=== PATIENT | female | born 2000 | race Caucasian/White ===

== ENCOUNTER 2022-06-10 00:14 | Inpatient (IN) ==
[2022-06-10] MEDS ORDERED: PENICILLIN G POTASSIUM 6 MU in DEXTROSE 5% 250 ML IV STA (02:41)
[2022-06-10] MEDS ORDERED: LIDOCAINE 1% LOCAL 20 ML VIAL INFIL PRN (02:41)
[2022-06-10] MEDS ORDERED: OXYTOCIN 30 UNITS/500 ML BAG IV PRN ×3 (02:41→16:13)
[2022-06-10] MEDS: LACTATED RINGER'S 1,000 ML IV PRN ×2 (03:02→11:08)
[2022-06-10] MEDS ORDERED: ePHEDrine sulfate 50 MG/ML AMP ONE (03:02)
[2022-06-10] MEDS ORDERED: BUPIVACAINE 0.25% PF 30 ML VIAL ONE (03:03)
[2022-06-10] MEDS ORDERED: SODIUM CHLORIDE 0.9% PF INJ 10 ML VIAL ONE (03:03)
[2022-06-10] MEDS ORDERED: fentaNYL citrate PF 100 MCG/2 ML VIAL ONE ×2 (03:03→11:09)
[2022-06-10] MEDS ORDERED: LIDOCAINE 2%/EPINEPHRINE 1:200,000 20 ML PF ONE (03:03)
[2022-06-10] MEDS ORDERED: fentaNYL 2MCG/ML ROPIVACAINE 1.25MG/ML 100 ML BAG EPI ONE (03:04)
[2022-06-10 03:13] LABS: Hematocrit (blood only) 30.8 % (37.0-47.0); Mean Corpuscular Hemoglobin 25.8 pg (25.0-34.0); Mean Corpuscular Hgb Conc 32.5 g/dL (32.0-36.0); Mean Corpuscular Volume 79.4 fL (80.0-100.0); Mean Platelet Volume 9.8 fL (9.4-12.4); Platelet Count 287 K/uL (130-400); RDW Coefficient of Variation 14.6 % (11.5-14.5); RDW Standard Deviation 41.9 fL (36.4-46.3); Red Blood Count 3.88 M/uL (4.20-5.40); White Blood Count 7.74 K/ul (4.8-10.8)
[2022-06-10] MEDS ORDERED: ONDANSETRON INJ 2 MG/ML 2 ML VIAL IV PRN (03:22)
[2022-06-10] MEDS ORDERED: NALOXONE HCL 1 MG in SODIUM CHLORIDE 0.9% 1000ML 1,000 ML IV PRN (03:22)
[2022-06-10] MEDS ORDERED: NALOXONE HCL 0.4 MG/1 ML VIAL/CARP IV PRN (03:22)
[2022-06-10] MEDS ORDERED: ePHEDrine sulfate 50 MG/ML AMP IV PRN (03:22)
[2022-06-10] MEDS ORDERED: diphenhydrAMINE 50 MG/ML VIAL IV PRN (03:22)
[2022-06-10] MEDS ORDERED: NALBUPHINE HCL INJ 10 MG/ML AMP IV PRN (03:22)
--- NOTE | 2022-06-10 03:24 | Anesthesiology Consultation ---
Date of Service June 10, 2022 Assessment & Plan (1) Encounter for pre-operative examination: Chart Review Chart Review: Patient NOT seen in Pre Admission Testing and Acceptable Risk for Labor Epidural Consults Requested none History Height/Weight Height: 4 ft 11.84 in Weight: 73.936 kg Allergies Allergy/AdvReac Type Severity Reaction Status Date / Time No Known Drug Allergies Allergy Verified 06/05/22 14:43 Medications Home Medications Medication Instructions Recorded Confirmed Last Taken prenat.vits,urbano,hjn-zlzo-vhfnq 1 tab PO DAILY 12/12/21 06/10/22 06/08/22 08:00 Active Medications Generic Name Dose Route Start Last Admin Trade Name Freq PRN Reason Stop Dose Admin Lactated Ringer's 1,000 mls @ 125 mls/hr 06/10/22 02:41 06/10/22 03:02 Lr IV 06/12/22 02:40 999 mls/hr .Q8H PRN Administration L&D Protocol Protocol Past Medical History Medical History Hyperemesis gravidarum Exercise / Class Metabolic Activity II 4-5 Yardwork/Stairs/Walk up hill Past Family History Family History Denies family history of Ovarian cancer Breast cancer Colorectal cancer Past Surgical History Surgical History No pertinent past surgical history Social History Smoking Status: Never smoker Hx Alcohol Use: No Hx Substance Use: No Physical Exam Vital Signs Last Vital Signs Temp 36.8 C 06/10/22 00:34 Pulse 81 06/10/22 03:44 Resp 18 06/10/22 00:34 BP 113/56 L 06/10/22 03:44 Pulse Ox 100 06/10/22 03:43 Testing Laboratory Results 06/10/22 02:56
--- NOTE | 2022-06-10 03:37 | History & Physical Report ---
Date of Service June 10, 2022 Assessment & Plan (1) 39 weeks gestation of : (2) Active labor at term: (3) Carrier of group B Streptococcus: Plan admit, iv, labs. pcn for gbs. fhts categ 1. pt desires and receiving epidural. aware via nurse that may require pit augmentation and accepts. History of Present Illness Chief Complaint: contractions. Primary Care Provider: [facility] 22yo at 39wks mirian presents to L&D with painful contractions. She did not call, she just arrived with these complaints. No rom, no vb. +FM. Her cervix was examined by nursing and she was 3cm and on re-exam was 3.5cm with closer painful contractions. There is a language barrier and cripple worker used for communication. PNC c/b 1. GBS pos PNL rh pos, ri, gbs neg. OBH: g1 GYNH: no stds Allergies Allergy/AdvReac Type Severity Reaction Status Date / Time No Known Drug Allergies Allergy Verified 06/05/22 14:43 Home Medications Medication Instructions Recorded Confirmed Type prenat.vits,urbano,oki-[id number]-[id number] 1 tab PO DAILY 12/12/21 06/10/22 History Patient History Medical History Hyperemesis gravidarum Surgical History No pertinent past surgical history Family History Denies family history of Ovarian cancer Breast cancer Colorectal cancer Social History Smoking Status: Never smoker Second Hand Exposure: No; Hx Alcohol Use: No Hx Substance Use: No Preferred Language: Slovak Communication Ability: Effective Communication Tools: IPad Recycle Coordinator Required: Yes Beliefs That Will Affect Care: None marital status: Single marital status details: viky Gage (23) Current Living Situation: Significant Other Current Living Situation Comment: lives with fob, no pets current occupational status: employed current occupation: [employer] Other Information That Helps Us Care for You: No Feels Safe at Home: Yes Review of Systems as per Subjective / HPI Physical Exam Constitutional: WD/WN, vitals as above Genitourinary: Manual OB Exam: + cervical dilation (3-4cm), + cervical effacement (75%) and + station (Per nurse) -2 OB Exam Monitor Tracing: + external FHT monitor used, + external uterine monitor used (q2-3min), + category I and + normal FHT variability Pt receiving epidural and so unable to complete general exam. Results & Data Vital Signs (Past 12 Hours) Vital Signs Temp Pulse Resp BP Pulse Ox 06/10/22 03:28 68 99 06/10/22 03:23 80 100 06/10/22 03:18 83 99 06/10/22 00:41 76 103/58 L 06/10/22 00:34 98.2 F 18 Coding Level of Care Code None Diagnoses 39 weeks gestation of Z3A.39 Active labor at term Carrier of group B Streptococcus Z22.330
[2022-06-10] MEDS: fentaNYL 2MCG/ML ROPIVACAINE 1.25MG/ML 100 ML BAG EPI PRN ×2 (04:17→10:36)
[2022-06-10] MEDS: PENICILLIN G POTASSIUM 3 MU in DEXTROSE 5% 100 ML IV PRN ×3 (06:51→14:55)
--- NOTE | 2022-06-10 08:09 | Labor Progress Brief Note ---
Date of Service June 10, 2022 Subjective comfortable with epidural, medical interpreter used. Assessment & Plan (1) 39 weeks gestation of : (2) Active labor at term: (3) Carrier of group B Streptococcus: Plan stable, will see how arom helps labor pattern. fhts categ 1. c/w pit. pt denies questions. Physical Exam Constitutional: WD/WN, vitals as above Psychiatric: A+Ox3, euthymic affect Genitourinary: Manual OB Exam: + cervical dilation 5 cm, + cervical effacement 80%, + station -2 and + amniotic fluid (AROM) clear OB Exam Monitor Tracing: + external FHT monitor used, + external uterine monitor used (q2 pit at 11), + category I and + normal FHT variability Results & Data Vital Signs (Past 12 Hours) Vital Signs Temp Pulse Resp BP Pulse Ox 06/10/22 08:03 63 97 06/10/22 08:02 60 111/61 06/10/22 07:58 66 98 06/10/22 07:53 74 98 06/10/22 07:48 65 99 06/10/22 07:43 73 99 06/10/22 07:30 18 06/10/22 07:30 98.2 F 18 06/10/22 07:38 66 98 06/10/22 07:33 98 06/10/22 07:33 65 06/10/22 07:33 109 H 106/58 L 06/10/22 07:28 69 100 06/10/22 07:25 95 H 90 06/10/22 07:23 74 96 06/10/22 07:18 76 97 06/10/22 07:17 70 121/77 06/10/22 07:13 64 97 06/10/22 07:08 71 97 06/10/22 07:03 98 06/10/22 07:03 66 06/10/22 07:03 74 112/69 06/10/22 07:00 18 06/10/22 07:00 98.8 F 18 06/10/22 06:58 74 97 06/10/22 06:53 77 97 06/10/22 06:54 76 105/71 06/10/22 06:48 97 06/10/22 06:48 83 06/10/22 06:48 87 86/52 L 91 06/10/22 06:43 66 100 06/10/22 06:38 72 98 06/10/22 06:33 97 H 98 06/10/22 06:32 81 108/53 L 06/10/22 06:30 18 06/10/22 06:30 18 06/10/22 06:28 66 98 06/10/22 06:23 66 97 06/10/22 06:18 84 102/53 L 99 06/10/22 06:13 75 98 06/10/22 06:08 69 97 06/10/22 06:00 18 06/10/22 06:00 18 06/10/22 06:03 71 97 06/10/22 06:01 76 94/52 L 06/10/22 05:58 67 97 06/10/22 05:53 79 98 06/10/22 05:48 68 96 06/10/22 05:46 63 102/58 L 06/10/22 05:43 68 97 06/10/22 05:38 68 96 06/10/22 05:33 69 98 06/10/22 05:31 64 106/58 L 06/10/22 05:30 18 06/10/22 05:30 18 06/10/22 05:28 69 98 06/10/22 05:23 64 98 06/10/22 05:18 65 98 06/10/22 05:16 75 104/59 L 06/10/22 05:13 78 97 06/10/22 05:08 73 98 06/10/22 05:03 74 98 06/10/22 05:00 18 06/10/22 05:00 18 06/10/22 05:01 79 109/56 L 06/10/22 04:58 74 98 06/10/22 04:53 69 98 06/10/22 04:48 70 99 06/10/22 04:46 74 105/61 06/10/22 04:43 84 97 06/10/22 04:38 78 98 06/10/22 04:30 18 06/10/22 04:30 18 06/10/22 04:33 91 H 99 06/10/22 04:31 64 106/61 06/10/22 04:28 84 98 06/10/22 03:55 18 06/10/22 03:55 18 06/10/22 03:31 18 06/10/22 03:31 18 06/10/22 04:23 71 98 06/10/22 04:18 82 99 06/10/22 04:17 75 107/59 L 06/10/22 04:13 73 116/60 99 06/10/22 04:09 74 98/70 L 06/10/22 04:08 75 99 06/10/22 04:03 70 99 06/10/22 04:02 73 127/76 06/10/22 04:00 98.4 F 80 18 96/52 L 06/10/22 03:58 99 06/10/22 03:58 81 06/10/22 03:58 75 102/57 L 06/10/22 03:56 68 97/52 L 06/10/22 03:53 76 99 06/10/22 03:54 75 97/52 L 06/10/22 03:52 69 100/55 L 06/10/22 03:50 74 104/53 L 06/10/22 03:48 99 06/10/22 03:48 73 06/10/22 03:48 73 98/53 L 06/10/22 03:46 80 106/56 L 06/10/22 03:44 81 113/56 L 06/10/22 03:43 91 H 100 06/10/22 03:42 86 126/71 06/10/22 03:38 84 99 06/10/22 03:33 85 100 06/10/22 03:28 68 99 06/10/22 03:23 80 100 06/10/22 03:18 83 99 06/10/22 00:41 76 103/58 L 06/10/22 00:34 98.2 F 18 Coding Level of Care Code None Diagnoses 39 weeks gestation of Z3A.39 Active labor at term Carrier of group B Streptococcus Z22.330
[2022-06-10] MEDS ORDERED: NURSING L&D Epidural Breakthrough Pain Update ONE (10:58)
--- NOTE | 2022-06-10 11:08 | Communication Note ---
Date of Service: June 10, 2022 Pt co pain. bolused epidural with 2% lido 5 cc plus fentanyl 100 mcg
--- NOTE | 2022-06-10 15:55 | Delivery Summary ---
Vaginal Delivery Summary Date of Service June 10, 2022 Vaginal Delivery Summary Spontaneous vaginal delivery the patient was admitted by the previous physician on-call she requested epidural and had rupture of membranes she then required some Pitocin augmentation she was group B strep positive and received several doses of antibiotics appropriately she progressed to fully dilated and then delivered over an occiput anterior position mouth nares suctioned fluid was clear there was no nuchal cord gentle traction no excessive force live vigorous male cord clamped and cut cord blood obtained placenta removed with traction second-degree tear repaired with 3-0 Vicryl sponge instrument counts correct estimated blood loss 250 mL no Pitocin was started afterwards and uterine tone was excellent
[2022-06-10] MEDS ORDERED: BENZOCAINE 20% AER SPR 82.5 GM CAN EXT PRN (16:13)
[2022-06-10] MEDS ORDERED: oxyCODONE/ACETAMINOPHEN 5mg/325mg TAB PO PRN (16:13)
[2022-06-10] MEDS ORDERED: HYDROCORTISONE ACETATE 25 MG SUPP PR PRN (16:13)
[2022-06-10] MEDS ORDERED: ACETAMINOPHEN 325 MG TAB PO PRN (16:13)
[2022-06-10] MEDS ORDERED: DIPHTHERIA/TETANUS/PERTUSSIS 0.5mL SYR/VIAL (Age 7+yrs) IM ONE (16:13)
[2022-06-10] MEDS ORDERED: bisacodyL 10 MG SUPP PR PRN (16:13)
[2022-06-10] MEDS: IBUPROFEN 600 MG TAB PO PRN (19:52)
[2022-06-10] MEDS: DOCUSATE SODIUM 100 MG CAP PO SCH (21:18)
--- NOTE | 2022-06-11 05:51 | Obstetrical Progress Note ---
Date of Service <Reanna RocheDO - Last Filed: 06/11/22 06:40> June 11, 2022 Assessment & Plan <Reanna RocheDO - Last Filed: 06/11/22 06:40> (1) Status post vaginal delivery: continue OOB, ambulation, diet as tolerated <Navarro Vernon MD, FACOG - Last Filed: 06/11/22 07:05> (1) Status post vaginal delivery: Subjective <Reanna RocheDO - Last Filed: 06/11/22 06:40> Yin is a 22 y/o female who is now PPD # 1 following vaginal delivery at 39 weeks. Reports feeling well overall this morning. Mild abdominal cramping, pain well managed on analgesics. Voiding. Tolerating meals overnight and able to ambulate some. Minimal persistent lochia with some improvement this morning. Formula feeding. Review of Systems Denies fever, chills, sweats Denies shortness of breath, difficulty breathing, chest pain, palpitations, chest pressure. Denies breast pain. Denies dysuria. Denies headache or changes in vision. Physical Exam <Reanna RocheDO - Last Filed: 06/11/22 06:40> General: Alert, oriented. No acute distress. Cardiac: Regular rate and rhythm, no murmurs/rubs/gallops. Respiratory: Clear to auscultation bilaterally a/p, no wheezes/rales/rhonchi. No increased work of breathing. Symmetrical chest rise. No respiratory distress. Abdomen: Soft, nontender, nondistended. Bowel sounds present. Uterus: Uterine fundus firm, palpable 2 cm below umbilicus. Lower Extremities: No lower extremity edema or swelling. No deep calf pain. Results & Data <Reanna RocheDO - Last Filed: 06/11/22 06:40> Vital Signs (Past 12 Hours) Vital Signs Temp Pulse Pulse Resp BP BP Pulse Ox 06/11/22 00:00 36.8 C 73 16 117/71 98 06/10/22 19:15 37.0 C 81 18 110/67 98 06/10/22 18:16 90 109/59 L 06/10/22 18:01 82 113/63 O2 Del Method 06/11/22 00:00 Room Air 06/10/22 19:15 Room Air 06/10/22 18:16 06/10/22 18:01 <Navarro Vernon MD, FACOG - Last Filed: 06/11/22 07:05> Co-Signing Physician Notes Resident Physician Supervision Note: I was present with Dr. Dr. Roche during the history and exam. I discussed the case with the resident and agree with the findings and plan as documented in the note. Any exceptions or clarifications are listed here: [None] Documented By: Navarro Vernon MD, FACOG Resident Activity Tracking <Reanna Roche DO - Last Filed: 06/11/22 06:40> Resident Involvement: Resident Care Provided Care Provided: OB Delivery (Post )
[2022-06-11 07:00] LABS: Hematocrit (blood only) 24.6 % (37.0-47.0); Hemoglobin 8.1 g/dl (12.0-16.0); Mean Corpuscular Hemoglobin 25.6 pg (25.0-34.0); Mean Corpuscular Hgb Conc 32.9 g/dL (32.0-36.0); Mean Corpuscular Volume 77.8 fL (80.0-100.0); Mean Platelet Volume 9.6 fL (9.4-12.4); Platelet Count 227 K/uL (130-400); RDW Coefficient of Variation 14.7 % (11.5-14.5); RDW Standard Deviation 41.1 fL (36.4-46.3); Red Blood Count 3.16 M/uL (4.20-5.40); White Blood Count 14.19 K/ul (4.8-10.8)
[2022-06-11] MEDS: DOCUSATE SODIUM 100 MG CAP PO SCH ×2 (08:19→20:42)
[2022-06-11] MEDS: PRENATAL VITAMIN 1 TAB PO SCH (08:19)
[2022-06-11] MEDS: IBUPROFEN 600 MG TAB PO PRN ×2 (08:19→20:41)
[2022-06-11] MEDS ORDERED: bisacodyL 5 MG TABEC PO SCH (20:00)
--- NOTE | 2022-06-12 05:40 | Obstetrical Progress Note ---
Date of Service <Reanna Roche DO - Last Filed: 06/12/22 06:34> June 12, 2022 Assessment & Plan <Reanna Roche - Last Filed: 06/12/22 06:34> (1) Status post vaginal delivery: continue OOB, ambulation, diet as tolerated Plan for 6 week post f/u Discharge instructions reviewed <Saira Dudley MD, FACOG - Last Filed: 06/12/22 07:33> (1) Status post vaginal delivery: Subjective <Reanna Roche DO - Last Filed: 06/12/22 06:34> Yin is a 22 y/o female who is now PPD # 2 following vaginal delivery at 39 weeks. Reports feeling well overall this morning. Mild abdominal cramping, pain well managed on analgesics. Voiding. Tolerating meals overnight and able to ambulate some. Minimal persistent lochia with some improvement this morning. Formula feeding. Does note that she is having some B/L calf pain, mild. No edema/erythema. Portuguese Tutor used to collect history. Review of Systems Denies fever, chills, sweats Denies shortness of breath, difficulty breathing, chest pain, palpitations, chest pressure. Denies breast pain. Denies dysuria. Denies headache or changes in vision. Physical Exam <Reanna Roche - Last Filed: 06/12/22 06:34> General: Alert, oriented. No acute distress. Cardiac: Regular rate and rhythm, no murmurs/rubs/gallops. Respiratory: Clear to auscultation bilaterally a/p, no wheezes/rales/rhonchi. No increased work of breathing. Symmetrical chest rise. No respiratory distress. Abdomen: Soft, nontender, nondistended. Uterus: Uterine fundus firm, palpable 3 cm below umbilicus. Lower Extremities: No lower extremity edema or swelling. No deep calf pain. Results & Data <Reanna RocheDO - Last Filed: 06/12/22 06:34> Vital Signs (Past 12 Hours) Vital Signs Temp Pulse Resp BP Pulse Ox O2 Del Method 06/12/22 04:13 36.9 C 70 16 112/69 98 Room Air 06/12/22 00:30 36.9 C 78 16 110/68 97 Room Air 06/11/22 20:30 36.6 C 90 16 105/63 97 Room Air <Saira Dudley MD, FACOG - Last Filed: 06/12/22 07:33> Co-Signing Physician Notes Resident Physician Supervision Note: I interviewed and examined the patient. Discussed with Dr. Roche and agree with findings and plan as documented in the note. Any exceptions or clarifications ar e listed here: Doing well. Plan d/c. INstructions and interview done with engrosser. Documented By: Saira Dudley MD, FACOG Resident Activity Tracking <Reanna Roche, DO - Last Filed: 06/12/22 06:34> Resident Involvement: Resident Care Provided Care Provided: OB Delivery (Post )
[2022-06-12 06:40] LABS: Hemoglobin 7.2 g/dl (12.0-16.0)
[2022-06-12] MEDS: DOCUSATE SODIUM 100 MG CAP PO SCH (09:35)
[2022-06-12] MEDS: IBUPROFEN 600 MG TAB PO PRN (09:36)
[2022-06-12] MEDS: PRENATAL VITAMIN 1 TAB PO SCH (09:37)
== END 2022-06-12 13:02 | disposition home or self-care (01) | DRG 807 ==
LOC: OPB 00:14 → 4S1 00:16 → 4E2 18:40